=== PATIENT | female | born 1985 | race African-American/Black ===

== ENCOUNTER 2017-02-04 14:35 | Emergency (ER) | payer MEDICAID ==
[~2017-02-04] VITALS: Ht 172.7 cm; Wt 79.8 kg
--- NOTE | ~2017-02-04 | EKG ---
[address] [address] ELECTROCARDIOGRAM REPORT Name: CRISPIN GIL [id number] Admission: 02/04/17 Attend Phys: Discharge: 02/04/17 Date of : 81 Report #: [id number] THIS REPORT FOR: //name// [facility] ED Test Date: 2017-02-04 Test Time: 15:14:52 Pat Name: CRISPIN GIL Department: Room: Gender: F [employer] Associate: : 1985 Requested By: Deric Sanders Order Number: [id number] MD: Ulices Resendiz Measurements Intervals [place] Rate: 61 P: 49 IN: 124 QRS: 46 QRSD: 81 T: 30 QT: 411 QTc: 414 Interpretive Statements Sinus rhythm Compared to ECG 03/25/2016 10:54:26 Early repolarization no longer present Electronically Signed On 02-06-2017 22:09:47 CDT by Ulices Resendiz [email or web address] <ELECTRONICALLY SIGNED> By: Ulices Resendiz MD 02/06/17 [id number] [id number] 151 Ulices Resendiz MD /MAGDA
[~2017-02-04 14:35] MED LIST: ACCUNEB SO1.25 MG/1 INH; FLONASE 0.05%50 MCG NASAL; PREDNISONE50 MG PO
[2017-02-04 16:47] LABS: CALCIUM 9.1 mg/dL (8.5-10.1); CREATININE 0.7 mg/dL (0.6-1.0); POTASSIUM 4.2 mmol/L (3.5-5.1)
[2017-02-04 17:02] LABS: ALBUMIN 3.9 g/dL (3.4-5.0); TOTAL BILIRUBIN 0.3 mg/dL (<0.1-1.0); TOTAL PROTEIN 7.8 g/dL (6.4-8.2)
[2017-02-04 17:21] LABS: MAGNESIUM 1.8 mg/dL (1.8-2.4); TROPONIN-I < 0.04 ng/mL (<0.04-0.07)
[2017-02-04 17:45] VITALS: BP 102/58
== END 2017-02-04 17:47 | disposition home or self-care (01) ==
LOC: ER 14:35
PROVIDERS: Emergency Medicine
DX: H57.11 Ocular pain, right eye (principal); R42 Dizziness and giddiness; I10 Essential (primary) hypertension; J45.909 Unspecified asthma, uncomplicated; Z88.8 Allergy status to other drugs, medicaments and biological substances; Z87.891 Personal history of nicotine dependence